=== PATIENT | male | born 2000 | race Caucasian/White ===

== ENCOUNTER 2024-07-13 07:57 | Outpatient (REF) | payer OTHER, SELFPAY ==
--- NOTE | ~2024-07-13 | FL_ITS ---
EXAMINATION: XR FLUOROSCOPY UPPER GI WITH AIR CLINICAL INFORMATION: Abdominal pain. Nausea/vomiting COMPARISON: None TECHNIQUE: Fluoroscopic air contrast upper GI examination was performed utilizing standard techniques with thin and thick barium and effervescent granules. Numerous spot images were obtained. FINDINGS: Dual and single contrast images of the esophagus demonstrate a normal caliber, and contour. There is a subtle granular appearance of the esophageal mucosa, with mild vertical fold thickening , with episodic feline contraction pattern in the midesophagus. No evidence of stricture, mass, or ulcerations identified. Esophageal peristalsis was essentially normal. No evidence of hiatus hernia identified. Severe gastroesophageal reflux is seen up to the thoracic inlet. Dual contrast and single contrast images of the stomach demonstrated a normal contour. There is a thickened appearance of the gastric rugal folds in the antrum. There are multiple tiny foci of contrast pooling in the body and fundus of the stomach that may present small superficial aphthous ulcers. No masses are seen. Contrast freely passed into the gastric antrum and duodenal bulb without delay. Single and air-contrast images of the duodenal bulb demonstrate no abnormality. The duodenal sweep has a normal appearance, course, and mucosal fold appearance. The imaged proximal jejunum has a normal fold pattern and caliber. FLUOROSCOPY TIME: 3 minutes 7 seconds Number of Spot Images: 8 Number of Cine: 12 DOSE AREA PRODUCT: 1305 uGy-m2 (microgray-meter squared) FL/FL upper GI w air IMPRESSION: 1. Granular appearance of the esophageal mucosa, suggestive of esophagitis. 2. Felinization of the mid esophageal mucosa. This is a benign finding typically associated with chronic gastroesophageal reflux. 3. Severe gastroesophageal reflux. 4. Thickened appearance of the gastric rugal folds in the antrum. In addition there are multiple tiny foci of contrast pooling in the body and fundus the stomach. These findings are suggestive of erosive gastritis. Recommend correlation with EGD. This procedure was performed by Pilo Batista PA-C, and supervised by Dr. Natarajan Electronically signed by: Monster Natarajan MD 07/14/2024 02:14 PM EDT
== END 2024-07-13 07:58 | disposition home or self-care (01) ==
LOC: HO.XRAY 07:57
PROVIDERS: PCP Internal Medicine; Visit Provider Internal Medicine
DX: R10.84 Generalized abdominal pain (principal); R11.10 Vomiting, unspecified; R19.7 Diarrhea, unspecified
CPT/HCPCS: 74246

== ENCOUNTER → 2024-07-13 08:05 | Outpatient (BNV) | payer OTHER, SELFPAY | PROVIDERS: PCP Internal Medicine; Visit Provider Physician Assistant Surgical | DX: R10.9 Unspecified abdominal pain (principal); R11.2 Nausea with vomiting, unspecified | CPT/HCPCS: 74246 ==

== ENCOUNTER 2024-08-17 09:54 | Emergency (ER) | payer OTHER, SELFPAY ==
--- NOTE | ~2024-08-17 | CT_ITS ---
EXAMINATION: CT ABDOMEN AND PELVIS WITHOUT CONTRAST CLINICAL INFORMATION: Inability to void, abdominal pain COMPARISON: None available. TECHNIQUE: Multidetector volumetric imaging was performed from the superior aspect of the liver through the pubic symphysis. Sagittal and coronal reformatted images were obtained on the technologist's workstation. This CT examination was performed using dose optimization techniques as appropriate, variously including the following: *Automated exposure control *Adjustment of mA and/or kV according to patient size (this includes techniques or standardized protocols for targeted exams where dose is matched to indication/reason for exam; i.e. extremities or head) *Use of iterative reconstruction technique DLP: 453 mGy-cm FINDINGS: LUNG BASES: Unremarkable. ABDOMINAL AND PELVIC WALL: Unremarkable. LIVER AND BILIARY TREE: Unremarkable. GALLBLADDER: Unremarkable. PANCREAS: Unremarkable. SPLEEN: Unremarkable. ADRENAL GLANDS: Unremarkable. KIDNEYS AND URETERS: Benign-appearing left renal cyst. Followup imaging is not routinely recommended for benign appearing cysts. GASTROINTESTINAL TRACT: Please colonic diverticulosis, no findings of diverticulitis. There is also appendix is within normal limits, multiple appendicoliths are noted. VASCULAR: Unremarkable LYMPH NODES/PERITONEUM: No lymphadenopathy. FREE FLUID: None. BLADDER: Unremarkable. PELVIC VISCERA: Unremarkable. OSSEOUS STRUCTURES: Unremarkable. CT/CT abdomen pelvis wo IV con IMPRESSION: No acute intra-abdominal abnormality. Electronically signed by: Kaci Flores MD 08/17/2024 07:11 PM [facility]
[2024-08-17 10:10] VITALS: BP 139/80; PULSE 74; RESP 18; TEMP 37.1; O2SAT 98; BMI 24.8
[2024-08-17 11:11] LABS: MANUAL DIFF FLAG NO
[2024-08-17 11:14] LABS: Basophils Percent Auto 0.6 % (0-2); Eosinophils Absolute Auto 0.1 X10*3/uL (0.0-0.4); Eosinophils Percent Auto 1.3 % (0-4); Hematocrit 47.7 % (42.0-52.0); Hemoglobin 17.3 g/dl (14.0-18.0); Imm Gran Abs Auto 0.01 X10*3/uL (0.00-0.03); Imm Gran Pct Auto 0.2 % (0.0-0.4); Lymphocytes Absolute Auto 0.9 X10*3/uL (1.2-4.9); Lymphocytes Percent Auto 18.3 % (20-40); Mean Corpuscular HGB Conc 36.3 g/dl (31.0-36.0); Mean Corpuscular Hemoglobin 30.8 pg (27.0-33.0); Mean Corpuscular Volume 84.9 fL (80.0-98.0); Monocytes Absolute Auto 0.5 X10*3/uL (0.1-1.2); Monocytes Percent Auto 10.6 % (2-11); Neutrophils Absolute Auto 3.2 x10*3/uL (2.0-8.3); Platelet Count 185 X10*3/uL (160-400); Red Blood Count 5.62 X10*6/uL (4.60-5.80); Red Cell Distribution Width 13.4 % (11.0-16.0); White Blood Count 4.7 X10*3/uL (4.8-10.8)
[2024-08-17 11:28] LABS: Alanine Aminotransferase 34 U/L (0-40); Albumin Level 4.4 g/dL (3.5-5.0); Alkaline Phosphatase 66 U/L (39-117); Anion Gap 8 (12-20); Aspartate Amino Transferase 27 U/L (5-37); Bilirubin Direct 0.3 mg/dL (0.0-0.5); Bilirubin Total 0.8 mg/dL (0.0-1.0); Blood Urea Nitrogen 12 mg/dL (9-16); Calcium 9.6 mg/dL (8.4-10.2); Carbon Dioxide 31 mmol/L (22-29); Chloride 106 mmol/L (96-108); Creatinine Clr Calc Pharmacy 141.4; Estimated Glomerular Filt Rate > 60; Glucose Random 104 mg/dL (60-115); Lipase 32 U/L (8-78); Potassium 4.2 mmol/L (3.3-5.1); Sodium 141 mmol/L (135-145); Total Protein 6.7 g/dL (6.5-8.0)
--- NOTE | 2024-08-17 17:31 | ED.GENADULT ---
HPI - General Adult General Chief complaint: Abdominal Pain Stated complaint: stomach problems Time Seen by Provider: 08/17/24 20:15 Source: patient, RN notes reviewed and old records reviewed Mode of arrival: ambulatory Limitations: no limitations History of Present Illness ED Provider: Hector LEIGH narrative: 24-year-old male presents for evaluation of abdominal pain, nausea and vomiting. Patient reports he has chronic abdominal pain. He is due to see GI in 2 days for an endoscopy and possible biopsy The patient reports that he has had abdominal pain for years but has never had an endoscopy His pain is worse after eating. He reports that he vomited today at work and thought there may have been blood clots in his so his boss wanted him to be evaluated The patient has been able to eat and drink while in the emergency room He has no fevers or chills. He has no history abdominal surgeries He reports that there is a strong family history of Crohn's disease. He also reports his cousin had a gastric cancer when he was age 19 Related Data Home Medications ?Medication ?Instructions ?Recorded ?Confirmed dnijrgqeze-yuyhifsxsetoi-ktrcbmdu 1 tab PO Q4H PRN Headache 08/17/24 08/17/24 50 mg-325 mg-40 mg tablet dicyclomine 20 mg tablet 20 mg PO .2-4XDAILY PRN Abdominal 08/17/24 08/17/24 Pain ondansetron 4 mg disintegrating 4 mg PO DAILY 08/17/24 08/17/24 tablet pantoprazole 40 mg tablet,delayed 40 mg PO DAILY 08/17/24 08/17/24 release Allergies Allergy/AdvReac Type Severity Reaction Status Date / Time shellfish derived Allergy Vomiting Verified 08/17/24 10:13 Review of Systems Constitutional: Constitutional: Denies body ache(s), Denies chills, Denies fever(s) and Denies headache(s) Eyes: Eyes: Denies blurry vision ENT: Denies vertigo, Denies dizziness and Denies headache(s) Cardiovascular: Cardiovascular: Denies chest pain and Denies dyspnea Respiratory: Respiratory: Denies cough and Denies dyspnea Gastrointestinal: Gastrointestinal: Reports abdominal pain, Denies melena, Denies hematochezia, Denies coffee ground emesis, Reports nausea and Reports vomiting Musculoskeletal: Musculoskeletal: Denies back pain Integumentary/Breasts: Skin/Breast: Denies rash Neurologic: Denies vertigo, Denies dizziness and Denies headache(s) Psychiatric: Psychiatric: Denies anxiety PMFSH Past Medical History Medical History (Updated 08/17/24 @ 21:31 by Pilo Young) Headache Nausea Smoker Abdominal pain GERD (gastroesophageal reflux disease) Erosive gastritis Surgical History (Updated 08/17/24 @ 11:55 by Gillian Fitzpatrick RN) Hx of wisdom tooth extraction History of tonsillectomy and adenoidectomy Social History Social History Alcohol intake: current Alcohol intake frequency: 0-2 drinks per day Alcohol type: beer Patient Tobacco Use Status: Current everyday Tobacco user Tobacco use type: Cigarette Cigarettes Per Day: 10 Smoked in Last 30 Days: Yes Use of substances other than those prescribed or required for medical reasons: No Advance Directives: No Advance Directives Information Provided: No Do you have a plan to hurt others: No Plan Physical Exam ED Vital Signs: Vital Signs - 24 hr 08/17/24 10:10 08/17/24 17:32 08/17/24 20:02 Temperature 98.8 F 98.0 F 98.7 F Pulse Rate 74 63 64 Respiratory Rate 18 18 18 Blood Pressure 139/80 128/78 122/81 Pulse Oximetry 98 99 98 Oxygen Delivery Method Room Air Room Air Room Air 08/17/24 21:45 Temperature 98.7 F Pulse Rate 64 Respiratory Rate 18 Blood Pressure 122/81 Pulse Oximetry 98 Oxygen Delivery Method Room Air BMI result Body Mass Index 24.8 Const General: healthy appearing, comfortable, no acute distress, alert and awake Nutritional Appearance: well nourished Orientation/consciousness: patient oriented x3 HENMT Head: Yes normocephalic and Yes atraumatic Eyes Eyelids: Yes eyelids normal Conjunctivae: conjunctivae normal Sclerae: sclerae normal Corneas: corneas normal Pupils: Equal, round and reactive pupils present EOM: EOMs intact bilaterally Neck Neck: Yes full ROM Resp Effort & Inspection: normal respiratory effort, able to speak in complete sentences and not labored Cardio Rate: regular rate Rhythm: regular rhythm GI Inspection: No distended Palpation (GI): Soft to palpation, not firm, Tenderness to palpation present (GI) in the epigastrum and in the LUQ, no guarding and not rigid Skin General skin exam: elasticity normal Neuro General: patient oriented x3 Cranial nerves: Yes Equal, round and reactive pupils present and Yes Bilaterally intact EOM present Cognition (Neuro): normal cognition Extrem Other: Moving all extremities well without any obvious deformities Course Course Course Narrative: This is an RME done by SYBIL Ferro: Additional HPI, ROS, PE not included below will be deferred to primary provider. 24 year old male presents w/ abd pain, cramping x a while acutely worsening today. Followed by GI. He reports he is due for a scope thursday but his pain has been worsening and is so severe he decided to come in today. Pain is currently a 7/10. He reports earlier today he threw up blood. He reports he tends to throw up when he eats. Denies diarrhea, abd pain, headache, fevers, chills, cp, sob. Also reports no urine output since around 7 pm last night --> CT abd orderd. Appearance: Alert.? Oriented X3.? No acute cardiopulmonary distress distress.? Head: Normocephalic, atraumatic, no step-offs or deformities CVS: Pulses normal.? Respiratory: No respiratory distress.? Abdomen: Soft and nontender.? Skin: ? Normal skin color. Extremities: 5/5 strength to bilateral upper and lower extremities Back: No midline tenderness, no C-spine tenderness, full range of motion, No CVA tenderness bilaterally Neuro: Oriented X 3.? No motor deficit.? No sensory deficit. Medical Decision Making Medical Decision Making [facility] Narrative: 24-year-old male presents for evaluation abdominal pain. He is not actively vomiting. He is due to see GI on Thursday which is the next step in his evaluation. He reports he is due to have an upper endoscopy and a possible biopsy. He has previously had a barium swallow as an outpatient. Patient's workup is largely unremarkable, he had a CT scan that did not show any acute infectious or surgical issues. The patient will be discharged to follow-up with his GI doctor Differential Diagnosis Differential Diagnoses: The differential diagnosis associated with the presentation includes Gastritis Peptic ulcer disease Gastroenteritis Abdominal pain Crohn's disease Gastric cancer Lab Data [facility] Lab Attestation statement: I reviewed the patient's lab results. Mild leukopenia to 4.7. There is no anemia. Normal platelet count. No significant electrolyte abnormalities 08/17/24 10:57 08/17/24 10:57 Labs: Lab Results 08/17/24 08/17/24 Range/Units 10:57 21:08 WBC 4.7 L (4.8-10.8) X10*3/uL RBC 5.62 (4.60-5.80) X10*6/uL Hgb 17.3 (14.0-18.0) g/dl Hct 47.7 (42.0-52.0) % MCV 84.9 (80.0-98.0) fL MCH 30.8 (27.0-33.0) pg MCHC 36.3 H (31.0-36.0) g/dl RDW 13.4 (11.0-16.0) % Plt Count 185 (160-400) X10*3/uL MPV 9.0 L (9.4-12.4) fL Immature Gran % (Auto) 0.2 (0.0-0.4) % Neut % (Auto) 69.0 (45-73) % Lymph % (Auto) 18.3 L (20-40) % Perkins % (Auto) 10.6 (2-11) % Eos % (Auto) 1.3 (0-4) % Baso % (Auto) 0.6 (0-2) % Lymph # (Auto) 0.9 L (1.2-4.9) X10*3/uL Perkins # (Auto) 0.5 (0.1-1.2) X10*3/uL Eos # (Auto) 0.1 (0.0-0.4) X10*3/uL Baso # (Auto) 0.0 (0.0-0.2) X10*3/uL Abs Immat Gran (auto) 0.01 (0.00-0.03) X10*3/uL Absolute Neuts (auto) 3.2 (2.0-8.3) x10*3/uL Absolute Nucleated RBC 0.000 (0.0-0.012) X10*3/uL Nucleated RBC % (auto) 0.0 (0.0-0.2) /100WBC Sodium 141 (135-145) mmol/L Potassium 4.2 (3.3-5.1) mmol/L Chloride 106 (96-108) mmol/L Carbon Dioxide 31 H (22-29) mmol/L Anion Gap 8 L (12-20) BUN 12 (9-16) mg/dL Creatinine 0.74 (0.5-1.4) mg/dL Estim Creat Clear Calc 141.4 Estimated GFR > 60 Random Glucose 104 (60-115) mg/dL Calcium 9.6 (8.4-10.2) mg/dL Total Bilirubin 0.8 (0.0-1.0) mg/dL Direct Bilirubin 0.3 (0.0-0.5) mg/dL AST 27 (5-37) U/L ALT 34 (0-40) U/L Alkaline Phosphatase 66 (39-117) U/L Total Protein 6.7 (6.5-8.0) g/dL Albumin 4.4 (3.5-5.0) g/dL Lipase 32 (8-78) U/L Urine Color Yellow Urine Appearance Cloudy Urine pH 7.5 (5.0-9.0) Ur Specific [place] 1.015 (1.005-1.025) Urine Protein Negative (Neg-Trace) mg/dL Urine Glucose (UA) Negative (Negative) mg/dL Urine Ketones Negative (Negative) mg/dL Urine Blood Negative (Negative) Urine Nitrite Negative (Negative) Ur Leukocyte Esterase Negative (Negative) Independent Interpretation I performed an independent interpretation of an: CT Scan (Agree with Radiology interpretation) Discharge Plan Discharge Clinical Impression: Abdominal pain Patient Disposition: Home, Self-Care Instructions: Abdominal Pain (ED) Additional Instructions: Your workup in the ER today was reassuring. This includes your blood work, your CT scan in your urinalysis. Take your home medications as prescribed. Follow-up with your GI doctor for your endoscopy that is scheduled on Thursday Prescriptions: No Action mjqaqusgyb-gbmvbgkvsyyoc-squp 50-325-40 mg tablet 1 tab PO Q4H PRN (Reason: Headache) dicyclomine 20 mg tablet 20 mg PO .2-4XDAILY PRN (Reason: Abdominal Pain) pantoprazole 40 mg tablet,delayed release (DR/EC) 40 mg PO DAILY ondansetron 4 mg tablet,disintegrating 4 mg PO DAILY Stand Alone Forms: Work/School Release Interventions: ED Discharge Assessment Last Done: 08/17/24 21:45 Discharge Date/Time: 08/17/24 21:46 Print Language: Tajik
[2024-08-17 17:32] VITALS: BP 128/78; PULSE 63; RESP 18; TEMP 36.7; O2SAT 99
[2024-08-17 20:02] VITALS: BP 122/81; PULSE 64; RESP 18; TEMP 37.1; O2SAT 98
--- NOTE | 2024-08-17 20:02 | MHC.EDTECH ---
Asked patient if he could give a urine sample and he said no. Patient has cup
[2024-08-17 21:17] LABS: Appearance Urine Cloudy; Color Urine Yellow; Glucose Urine UA Negative (Negative); Leukocyte Esterase Urine Negative (Negative); Nitrite Urine Negative (Negative); PH 7.5 (5.0-9.0); Specific Gravity - Urine 1.015 (1.005-1.025); Urine Blood Negative (Negative); Urine Ketones Negative (Negative); Urine Protein Negative (Neg-Trace)
[2024-08-17 21:45] VITALS: BP 122/81; PULSE 64; RESP 18; TEMP 37.1; O2SAT 98
== END 2024-08-17 21:46 | disposition home or self-care (01) ==
PROVIDERS: Emergency Provider Emergency Medicine Emergency Medical Services; PCP Internal Medicine
DX: R10.9 Unspecified abdominal pain (principal); F17.210 Nicotine dependence, cigarettes, uncomplicated
CPT/HCPCS: 36415; 74176; 80048; 80076; 81003; 83690; 85025; 99284

== ENCOUNTER 2024-08-19 10:50 | Day surgery (SDC) | payer OTHER, SELFPAY ==
[2024-08-17 14:29] VITALS: BMI 23.6
[2024-08-17 14:45] VITALS: BMI 23.6
--- NOTE | 2024-08-18 09:45 | P.CONAN_ITS ---
Documented by User: Donna Nolen NP 08/18/24 09:45 HPI - Anesthesia Eval Consult details Narrative: 24yo M for?Upper Endoscopy [facility] Past Medical History Medical History Headache Nausea Smoker Abdominal pain GERD (gastroesophageal reflux disease) Erosive gastritis Surgical History Surgical History Hx of wisdom tooth extraction History of tonsillectomy and adenoidectomy Social History Social History Alcohol intake: current Alcohol intake frequency: 0-2 drinks per day Alcohol type: beer Patient Tobacco Use Status: Current everyday Tobacco user Tobacco use type: Cigarette Cigarettes Per Day: 10 Meds Allergies Allergy/AdvReac Type Severity Reaction Status Date / Time shellfish derived Allergy Vomiting Verified 08/19/24 11:00 Home Medications ?Medication ?Instructions ?Recorded ?Confirmed ?Last Taken ?Type flyelhlpoz-oicsyspktxxem-qebmtrqd 1 tab PO Q4H PRN Headache 08/17/24 08/17/24 Unknown History 50 mg-325 mg-40 mg tablet dicyclomine 20 mg tablet 20 mg PO .2-4XDAILY PRN Abdominal 08/17/24 08/17/24 Unknown History Pain ondansetron 4 mg disintegrating 4 mg PO DAILY 08/17/24 08/17/24 Unknown History tablet pantoprazole 40 mg tablet,delayed 40 mg PO DAILY 08/17/24 08/17/24 Unknown History release Exam Height,Weight and Vital Signs: Height 5 ft 7.5 in Weight 69.4 kg Assessment and Plan Assessment Anesthesia Assessment: Chart Reviewed Documented by User: Brittny Paredes MD 08/19/24 11:23 [facility] Past Medical History Medical History Headache Nausea Smoker Abdominal pain GERD (gastroesophageal reflux disease) Erosive gastritis Functional capacity: bed bound Surgical History Surgical History Hx of wisdom tooth extraction History of tonsillectomy and adenoidectomy History of Problems with Anesthesia: No Social History Social History Alcohol intake: current Alcohol intake frequency: 0-2 drinks per day Alcohol type: beer Patient Tobacco Use Status: Current everyday Tobacco user Tobacco use type: Cigarette Cigarettes Per Day: 10 Meds Allergies Allergy/AdvReac Type Severity Reaction Status Date / Time shellfish derived Allergy Vomiting Verified 08/19/24 11:00 Home Medications ?Medication ?Instructions ?Recorded ?Confirmed ?Last Taken ?Type epdngclphb-qnrfctqveinzk-grjfygcm 1 tab PO Q4H PRN Headache 08/17/24 08/17/24 Unknown History 50 mg-325 mg-40 mg tablet dicyclomine 20 mg tablet 20 mg PO .2-4XDAILY PRN Abdominal 08/17/24 08/17/24 Unknown History Pain ondansetron 4 mg disintegrating 4 mg PO DAILY 08/17/24 08/17/24 Unknown History tablet pantoprazole 40 mg tablet,delayed 40 mg PO DAILY 08/17/24 08/17/24 Unknown History release Exam Airway Mallampati Class: II TM Dist: >3cm Neck ROM: Full Loose/Missing/Broken Teeth: No Heart: RRR Lungs: CTA Assessment and Plan Assessment Anesthesia Assessment: Anesthesia Plan Discussed Final Anesthetic Review History of Problems with Anesthesia: No NPO: Yes ASA Class: II Final Preanesthetic Review: Meds/Allgs Chart Reviewed, Consent Obtained/Reviewed and Anes Risks/Benef Reviewed Patient Risk: Low Procedure Risk: Intermediate Anesthetic Plan Anesthetic Plan: MAC: Disposition: Standard PACU
[2024-08-19] MEDS: Lactated Ringers 1,000 ML 100 ML IVCONT (11:07)
[2024-08-19 11:11] VITALS: BP 103/76; PULSE 70; RESP 18; TEMP 36.7; O2SAT 98
--- NOTE | 2024-08-19 11:20 | MHC.SHP ---
Pre-Procedural Eval Section A - 24 Hr Update-Section A only Date of Service: 08/19/24 The patient is an INPATIENT: No Changes since office visit: No Cold of Flu in the past 2 weeks, No New Medical Problems, No Changes in Medication and No Patient answered all questions The patient has been examined within 24 hours of the surgical procedure. The History & Physical has been completed within 30 days and I have reviewed it.: Yes Section B - Complete if H&P > 30 days Chief Complaint: Abnormal findings on diagnostic imaging,epigastric Allergies: Allergies Allergy/AdvReac Type Severity Reaction Status Date / Time shellfish derived Allergy Vomiting Verified 08/19/24 11:00 Plan I have reviewed the history and physical and performed a pertinent physical examination on my patient. No changes have occurred unless specified. Time Spent With Patient Time: Total time managing care of this patient today ____ minutes.
[2024-08-19 11:38] VITALS: BP 94/41; PULSE 65; RESP 12; TEMP 36.1; O2SAT 97
[2024-08-19 11:53] VITALS: BP 105/60; PULSE 68; RESP 18; O2SAT 99
[2024-08-19 12:08] VITALS: BP 100/61; PULSE 65; RESP 18; TEMP 36.2; O2SAT 99
--- NOTE | 2024-08-19 12:11 | OP_ITS ---
DATE OF SERVICE: 08/19/2024 SURGEON: Yogi Etienne MD INDICATIONS: Epigastric pain and abnormal upper GI series. PREOPERATIVE DIAGNOSIS: POSTOPERATIVE DIAGNOSIS: PROCEDURE PERFORMED: Upper endoscopy with biopsy. ESTIMATED BLOOD LOSS: COMPLICATIONS: ANESTHESIA: Monitored anesthesia care. ASSISTANTS: SPECIMENS: DESCRIPTION OF PROCEDURE: A history and physical was performed. The risks and benefits of the procedure were explained to the patient and informed consent was obtained. The patient was placed in the left lateral decubitus position. The Olympus video gastroscope was introduced into the esophagus, stomach, and duodenum. Examination was performed and the scope was removed. He tolerated the procedure well and was returned to recovery area in stable condition. FINDINGS: Esophagus: There was a single 10 mm erosion above the EG junction with some associated mild esophagitis. There was no bleeding. Biopsies were obtained from the EG junction. Stomach: The stomach showed no evidence of masses, ulcers, or polyps. Antral biopsies were obtained. Duodenum: The bulb and 2nd portion were normal. IMPRESSION: Erosive esophagitis. RECOMMENDATION: Follow up the biopsy results. MD KAYLA Siegel/JARVISL / [id number]
[2024-08-19 12:23] VITALS: BP 111/61; PULSE 62; RESP 20; TEMP 36.3; O2SAT 99
== END 2024-08-19 13:05 | disposition home or self-care (01) ==
PROVIDERS: PCP Internal Medicine; Visit Provider Internal Medicine Gastroenterology
PROC: 0DJ08ZZ Inspection of Upper Intestinal Tract, Via Natural or Artificial Opening Endoscopic (ICD-10-PCS; CPT 43235; principal; 2024-08-19 12:40)
DX: K22.10 Ulcer of esophagus without bleeding (principal); K21.9 Gastro-esophageal reflux disease without esophagitis; R93.3 Abnormal findings on diagnostic imaging of other parts of digestive tract; F17.210 Nicotine dependence, cigarettes, uncomplicated; Z79.899 Other long term (current) drug therapy
CPT/HCPCS: 43239; 88305; 88342; J2003; J2704